=== PATIENT | female | born 1985 | race Two or more races ===

== ENCOUNTER 2023-07-23 09:38 | Emergency (ER) | payer OTHER ==
[2023-07-23 10:01] VITALS: BP 147/90; O2SAT 100
--- NOTE | 2023-07-23 10:39 | ED Physician Documentation ---
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 No: Weakness, Numbness Review of Systems Neurologic: denies: Focal weakness, Numbness PD PAST MEDICAL HISTORY - Past Medical History Past Medical History: No - Past Surgical History Past Surgical History: Yes Neuro: Other HEENT: Other - Allergies Allergies/Adverse Reactions: Allergies Allergy/AdvReac Type Severity Reaction Status Date / Time No Known Drug Allergies Allergy Verified 07/23/23 09:52 - Social History Does the pt smoke?: No Smoking Status: Never smoker Does the pt drink ETOH?: No Does the pt have substance abuse?: No - Immunizations Immunizations are current?: Yes - POLST Patient has POLST: No PD ED PE NORMAL - Vitals Vital signs reviewed: Yes - General General: Alert and oriented X 3, No acute distress, Well developed/nourished - Derm Derm: Normal color, Warm and dry - Extremities Extremities: Other (right fingers with small laceration 4 mm ring finger prox to nailbed that does not go full thickness, no bleeding. Middle finger with 1.2 cm lac to fatty tissue that is bleeeding mild without direct pressure. Full ex tension of finger without pain. Does not involve nailbed. Is over DIP. ) - Neuro Neuro: No motor deficit, No sensory deficit Procedures - Laceration (location) right middle finger Length in cm: 1.2 Wound type: Linear, Into subcut fat, Clean Neurovascular status: Sensory intact, Motor intact, Vascular intact (normal color and cap refill distal. There is small superficial vessel bleeding from the lac.) Tendon involvement: Tendon intact Anesthesia: Lidocaine 1% with epi Wound preparation: Other (cleansed generaously with tap water.) Skin layer closure: Nylon, Running, Size #-0 - enter number (4), Sutures - enter # (7) Other: Patient tolerated well, No complications, Tetanus UTD PD Medical Decision Making - ED course Complexity details: considered differential (laceration to finger dorsally without tendon invovlement. Is over joint and still mild bleeding on ROM so not amenable to tape/glue, will place sutures and pt agrees. ), d/w patient Departure - Departure Disposition: 01 Home, Self Care Clinical Impression: Finger laceration Qualifiers: Encounter type: initial encounter Finger: middle finger Damage to nail status: without damage Foreign body presence: without foreign body Laterality: right Qualified Code(s): S61.212A - Laceration without foreign body of right middle finger without damage to nail, initial encounter Condition: Stable Record reviewed to determine appropriate education?: Yes Instructions: ED Laceration Hand Follow-Up: BREEZY Jensen [Provider Group] Comments: It is okay to wash and shower. Clean off the wound twice a day with soap and water, or peroxide and water. Apply some antibiotic ointment to it to keep it moist. Also to watch for signs of infection such as purulence, redness or increasing pain. Return to your primary care or the ER at the specified time for suture removal. Suture removal 8 to 10 days. Activity as tolerated with the hand. Try to avoid firm gripping such as weight lifting or such with the finger and hand for the first few days anyway. Forms: PCP List Discharge Date/Time: 07/23/23 11:38
== END 2023-07-23 11:38 | disposition home or self-care (01) ==
LOC: ED 09:38
DX: S61.212A Laceration without foreign body of right middle finger without damage to nail, initial encounter (principal); S61.214A Laceration without foreign body of right ring finger without damage to nail, initial encounter; W26.8XXA Contact with other sharp object(s), not elsewhere classified, initial encounter; Y93.E9 Activity, other interior property and clothing maintenance; Y92.000 Kitchen of unspecified non-institutional (private) residence as the place of occurrence of the external cause
CPT/HCPCS: 12001; 99281

== ENCOUNTER 2023-08-02 07:45 | Emergency (ER) | payer OTHER ==
[2023-08-02 08:02] VITALS: BP 125/70; O2SAT 100
[2023-08-02 08:47] LABS: BILIRUBIN,URINE NEGATIVE (NEGATIVE); GLUCOSE, URINE (UA) NEGATIVE (NEGATIVE); KETONES,URINE (UA) NEGATIVE (NEGATIVE); LEUKOCYTE ESTERASE, URINE NEGATIVE (NEGATIVE); NITRITE,URINE NEGATIVE (NEGATIVE); OCCULT BLOOD,URINE SMALL (NEGATIVE); PH,URINE 7.5 PH (5.0-7.5); PROTEIN,URINE NEGATIVE (NEGATIVE); UROBILINOGEN,URINE 0.2 (NORMAL) E.U./dL (NORMAL)
[2023-08-02 08:56] LABS: CLARITY,URINE CLEAR (CLEAR); HCG UR QUAL NEGATIVE
[2023-08-02 09:06] LABS: BACTERIA,URINE Few /HPF (None Seen); RBC,URINE 0-5 /HPF (0-5); SQUAMOUS EPITHELIAL CELL,UR FEW Squamous (<= Few); WBC,URINE 0-3 /HPF (0-5)
--- NOTE | 2023-08-02 09:06 | ED Physician Documentation ---
History of Present Illness - Stated complaint Stated Complaint: BACK PX, - Chief complaint Chief Complaint: General - History obtained from History obtained from: Patient - Additonal information Additional information: Patient is a 38-year-old female without any significant past medical history presenting for evaluation of a rash that she has noticed from the right flank into the right abdomen since Monday. She describes it as a throbbing discomfort. No nausea or vomiting or fevers. She did have chickenpox as a child. No abnormal drainage. Denies dysuria or hematuria. Review of Systems Constitutional: denies: Fever Cardiac: denies: Chest pain / pressure Respiratory: denies: Dyspnea GI: denies: Abdominal Pain : denies: Dysuria Skin: reports: Rash PD PAST MEDICAL HISTORY - Past Medical History Past Medical History: Yes - Past Surgical History Past Surgical History: Yes Neuro: Other HEENT: Other - Present Medications Home Medications: Ambulatory Orders Medication Instructions Recorded Confirmed FLUoxetine [PROzac] 20 mg PO DAILY 08/02/23 08/02/23 Oxycodone HCl/Acetaminophen 1 each PO Q6H PRN #14 tablet 08/02/23 [Percocet 5-325 mg Tablet] predniSONE [Deltasone] 20 mg PO [id number] #21 tab 08/02/23 valACYclovir [Valtrex] 1,000 mg PO TID 7 Days #42 tablet 08/02/23 - Allergies Allergies/Adverse Reactions: Allergies Allergy/AdvReac Type Severity Reaction Status Date / Time No Known Drug Allergies Allergy Verified 08/02/23 07:58 - Social History Does the pt smoke?: No Smoking Status: Never smoker Does the pt drink ETOH?: No Does the pt have substance abuse?: No - Immunizations Immunizations are current?: Yes - POLST Patient has POLST: No PD ED PE NORMAL - General General: Alert and oriented X 3, No acute distress, Well developed/nourished - HEENT HEENT: Atraumatic - Neck Neck: Supple, no meningeal sign - Respiratory Respiratory: No respiratory distress - Abdomen Abdomen: Normal bowel sounds, Soft, Non tender, Non distended - Back Back: No CVA TTP - Derm Derm: Other (Erythematous rash to right flank and Right lower quadrant with small vesicles) - Neuro Neuro: Normal speech Results - Vitals Vitals: Vital Signs - 24 hr 08/02/23 07:53 Temperature 36.4 C L Heart Rate 61 Respiratory 20 Rate Blood Pressure 125/70 O2 Saturation 100 Oxygen O2 Source Room air - Labs Labs: Laboratory Tests 08/02/23 08:24 Urine Color YELLOW Urine Clarity CLEAR Urine pH 7.5 Ur Specific [place] 1.020 Urine Protein NEGATIVE Urine Glucose (UA) NEGATIVE Urine Ketones NEGATIVE Urine Occult Blood SMALL H Urine Nitrite NEGATIVE Urine Bilirubin NEGATIVE Urine Urobilinogen 0.2 (NORMAL) Ur Leukocyte Esterase NEGATIVE Urine RBC 0-5 Urine WBC 0-3 Ur Squamous Epith Cells FEW Squamous Urine Bacteria Few Ur Microscopic Review INDICATED Urine Culture Comments NOT INDICATED Urine HCG, Qual NEGATIVE PD Medical Decision Making - ED course ED course: Patient with rash to right flank and in right lower quadrant. Abdominal exam is benign. Rash is concerning for shingles. Patient does have a history of chickenpox as a child. Vital signs are stable. Patient is not . Discussed recommended treatment for shingles including antivirals. Patient reports having difficulty in sleeping at night due to the pain so also prescribed pain medication. 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. Departure - Departure Disposition: 01 Home, Self Care Clinical Impression: Shingles Condition: Stable Instructions: ED Shingles Follow-Up: BREEZY Jensen [Provider Group] Prescriptions: predniSONE [Deltasone] 20 mg PO [id number] #21 tab Oxycodone HCl/Acetaminophen [Percocet 5-325 mg Tablet] 1 each PO Q6H PRN #14 tablet PRN Reason: pain valACYclovir [Valtrex] 1,000 mg PO TID 7 Days #42 tablet Comments: Your rash today is concerning for shingles which is caused by the same virus wally t causes chickenpox. I have sent prescriptions to the [facility] pharmacy in [place]. 1 of these medications is an antiviral medication which I would recommend you start a soon as possible. The second is a course of prednisone which may help with decreasing the overall pain and nerve pain that can linger after a shingles episode. The third is a narcotic pain medication which I would recommend using only as needed. You can otherwise use an anti-inflammatory such as acetaminophen or ibuprofen. I would recommend close follow-up with your PCM at the [facility]. I am prescribing a short course of narcotic pain medication for you. These are potentially dangerous and addictive medications that should be used carefully. These medications may constipate you. Take an [id number] stool softener (docusate) twice daily with plenty of water while taking these medications. If you go 24 hours without a bowel movement, take [id number] miralax, per package instructions. Do not drink or drive while taking these medications. If you received narcotic or sedating medications while in the emergency department, do not drive for 24 hours. Store this medication in a safe, secure place and out of reach of children. It is a violation of federal law to give or sell this medication to another person or to use in a manner other than prescribed. The ED will not refill narcotic prescriptions, including prescriptions lost or stolen. To dispose of unwanted medications: 1. [facility] at [address] in [place] has a medication drop box. They accept prescription medications (in pill form) Monday through Monday 9:00 a.m. to 5:00 p.m. 2. The [facility] accepts prescription medications (in pill form only) for disposal year round. Call for more information. 3. Contact the [facility] for the next [facility] sponsored prescription drug collection event. , x7310, or [phone]; Note that many narcotic pain relievers also contain Tylenol/acetaminophen. Please ensure that your total dose of acetaminophen from all sources does not exceed 3 g (3000 mg) per day. Forms: PCP List, Activity restrictions Discharge Date/Time: 08/02/23 09:31
== END 2023-08-02 09:31 | disposition home or self-care (01) ==
LOC: ED 07:45
DX: B02.9 Zoster without complications (principal)
CPT/HCPCS: 81001; 81003; 81025; 87086; 99283; 99284